=== PATIENT | female | born 1940 | race Caucasian/White ===

== ENCOUNTER 2016-09-29 07:51 | Emergency (ER) | payer OTHER ==
[~2016-09-29] VITALS: Ht 165.1 cm; Wt 72.6 kg
[2016-09-29 08:41] LABS: Basophils # (auto) 0 uL; Basophils % (auto) 0.8 % (0.0-2.0); Eosinophils # (auto) 0.1 uL; Eosinophils % (auto) 1.3 % (0.0-7.0); Hemoglobin 15.2 g/dL (12.2-16.2); Lymphocytes % (auto) 26.6 % (10.0-50.0); Mean Corpuscular Hemoglobin 31.5 pg (28.0-32.0); Mean Corpuscular Hgb Conc. 33.8 g/dL (32.0-36.0); Mean Corpuscular Volume 93.2 fL (80.0-100.0); Monocytes # (auto) 0.3 uL; Monocytes % (auto) 9.1 % (0.0-12.0); Neutrophils # (auto) 2.4 uL; Neutrophils % (auto) 62.2 % (37.0-80.0); Platelet Count (auto) 208 10^3/uL (140-450); Red Cell Distribution Width 13.1 % (11.6-16.0); White Blood Cell 3.8 10^3/uL (4.4-10.8)
[2016-09-29 09:04] LABS: Albumin 3.5 g/dL (3.4-5.0); BUN/Creatinine Ratio 14.3; Calcium 9.4 mg/dL (8.5-10.1); Potassium 3.9 mmol/L (3.5-5.1)
[2016-09-29 09:07] LABS: Bilirubin, Total 0.8 mg/dL (0.2-1.0); Total Protein 7.4 g/dL (6.4-8.2)
[2016-09-29] MEDS: LIDOCAINE 1% HCL (LOCAL ANESTH.) INJ 20ML MDV ONE (09:13)
[2016-09-29] MEDS: DIPHENOXYLATE W/ATROPINE 2.5 MG TAB PO ONE (09:57)
[2016-09-29] MEDS: ONDANSETRON HCL 4 MG/2 ML VIAL IV ONE (09:57)
[2016-09-29] MEDS: SODIUM CHLORIDE 0.9% 1,000 ML IV ONE (09:57)
[2016-09-29 10:58] LABS: Urine Bilirubin Negative (Negative); Urine Blood Negative /uL (Negative); Urine Color Yellow (Yellow); Urine Glucose Normal (Normal); Urine Ketone Negative (Negative); Urine Nitrite Negative (Negative); Urine RBC 1 /hpf (0 - 4); Urine Urobilinogen Normal (Negative)
[2016-09-29 11:57] VITALS: BP 138/58
== END 2016-09-29 12:00 | disposition home or self-care (01) ==
LOC: ER 07:51
DX: K52.9 Noninfective gastroenteritis and colitis, unspecified (principal); M19.90 Unspecified osteoarthritis, unspecified site; E78.5 Hyperlipidemia, unspecified
CPT/HCPCS: 36415; 80053; 81001; 85025; 93005; 96361; 96374; 99285; J2405; J2001